=== PATIENT | female | born 1985 | race Caucasian/White ===

== ENCOUNTER 2018-11-07 15:46 | Emergency (ER) | payer BC ==
[2018-11-07 17:01] LABS: HEMOGLOBIN 10.8 g/dL (11.0-16.0); MEAN CELL VOLUME 81.6 fL (81.0-99.0); MEAN CORPUSCULAR HEMOGLOBIN 27.7 pg (27.0-31.0); MEAN CORPUSCULAR HGB CONC 33.9 g/dL (33.0-37.0); MEAN PLATELET VOLUME 8.6 fL (7.2-11.7); RBC 3.89 Mil/uL (3.80-5.20); RED CELL DISTRIBUTION WIDTH 13.5 % (11.5-14.5); WHITE BLOOD COUNT 8.4 K/uL (4.8-10.8)
[2018-11-07 17:08] LABS: SQUAMOUS EPITHIAL 1 /hpf (0-5); URINE BACTERIA RARE (<OCC); URINE BILIRUBIN NEGATIVE (NEGATIVE); URINE BLOOD NEGATIVE (NEGATIVE); URINE CALCIUM OXALATE CRYSTALS FEW /hpf (<OCC); URINE CLARITY Hazy (Clear); URINE COLOR Yellow (YELLOW); URINE GLUCOSE (UA) NORMAL (Normal); URINE LEUKOCYTE ESTERASE NEG Leu/uL (Negative); URINE PROTEIN NEGATIVE (NEGATIVE)
[2018-11-07 17:16] LABS: ALB/GLOB RATIO 1.2 (1.0-2.1); ALBUMIN 3.2 g/dL (3.5-5.0); ALT/SGPT 95 U/L (9-52); AST/SGOT 66 U/L (14-36); BILIRUBIN,DIRECT 0.2 mg/dL (0.0-0.4); BLOOD UREA NITROGEN 11 mg/dL (7-17); CALCIUM 8.8 mg/dl (8.6-10.4); GFR NON-AFRICAN AMERICAN > 60
[2018-11-07] MEDS ORDERED: Betamethasone Soluspan 30 mg/5mL Inj Susp IM ONE (17:29)
[2018-11-08 01:33] VITALS: BP 114/73; PULSE 86; RESP 20; TEMP 97.4; O2SAT 100
--- NOTE | 2018-11-08 12:19 | US ---
HISTORY: 34 wks IUP r/o cholestasis COMPARISON: None available. TECHNIQUE: Sonographic evaluation of the abdomen. FINDINGS: Examination limited by bowel gas. LIVER: Measures 15.8 cm in sagittal dimension and appears within normal limits of size, shape, and echotexture. No focal hepatic mass identified. The main portal vein appears patent with normal directional flow. No intrahepatic bile duct dilatation. GALLBLADDER: No gallstones. No gallbladder wall thickening. Negative sonographic Reyes's sign as assessed by the traffic maintenance supervisor. COMMON BILE DUCT: Measures 3 mm. PANCREAS: Not well visualized. RIGHT KIDNEY: Measures 11.5 x 5.6 x 4.9cm. No obstructing calculus or hydronephrosis identified. LEFT KIDNEY: Measures 10.9 x 5.6 x 5.6cm. No obstructing calculus or hydronephrosis identified. SPLEEN: Measures approximately 10.4 cm. AORTA: Limited views appear unremarkable. IVC: Limited views appear unremarkable. OTHER FINDINGS: Gravid patient. heart rate measures 132 beats per minute. Fetus otherwise not evaluated. If further evaluation indicated, suggest dedicated ultrasound. IMPRESSION: No acute findings identified. Preliminary impression was provided by [employer].
[2018-11-11 17:46] LABS: CHENODEOXYCHOLIC ACID 10.3 umol/L (< OR = 3.9)
== END 2018-11-07 21:25 | disposition home or self-care (01) ==
LOC: C.EROB 15:46
DX: O26.893 Other specified pregnancy related conditions, third trimester (principal); L29.9 Pruritus, unspecified; Z3A.34 34 weeks gestation of pregnancy
CPT/HCPCS: 76700; 80053; 81001; 82239; 82248; 83789; 85027; 96372; 99284; J0702

== ENCOUNTER 2018-11-08 18:46 | Emergency (ER) | payer BC ==
[2018-11-08 19:33] VITALS: BMI 29.2
[2018-11-08 20:16] LABS: ALB/GLOB RATIO 1.2 (1.0-2.1); ALBUMIN 3.2 g/dL (3.5-5.0); ALT/SGPT 117 U/L (9-52); AST/SGOT 79 U/L (14-36); BILIRUBIN,DIRECT 0.2 mg/dL (0.0-0.4); BLOOD UREA NITROGEN 9 mg/dL (7-17); CALCIUM 9.1 mg/dl (8.6-10.4); GFR NON-AFRICAN AMERICAN > 60
--- NOTE | 2018-11-08 20:49 | OBHP ---
Datetime: 11/08/2018 19:44 IP Adm Impression: , intrauterine IP Admit Plan: Observation/Evaluation Admit Comment, IP Provider: 33 yo female with an IUP at 34.1 weeks [address] by Dr. Schmitt for a second dose of Celestone and to repeat Liver profile Pelvic Type - PN: Adequate Extremities - PN: Normal Abdomen - PN: Normal Back - PN: Normal Breast - PN: Not Done Lungs - PN: Normal Heart - PN: Normal Thyroid - PN: Normal Neurologic - PN: Normal HEENT - PN: Normal General - PN: Normal EGA AdmitDate IP: 34.1 IP Chief Complaint: Maternal discomfort; evaluation Genitourinary Exam: Normal DTRs - PN: Normal Datetime: 11/07/2018 17:25 IP Chief Complaint Other: itching in the belly FHR - Baseline A Provider: 130 Contraction Comments Provider: none Vital Signs Provider: Reviewed; Within Normal Limits NICHD Variability Prov Fetus A: Moderate 6-25bpm NICHD Accel Fetus A IP Provider: [id number] FHR Category Provider Fetus A: Category I
[2018-11-08 21:10] LABS: SQUAMOUS EPITHIAL 1 /hpf (0-5); URINE AMORPHOUS SEDIMENT MODERATE /ul (<OCC); URINE BACTERIA RARE (<OCC); URINE BILIRUBIN NEGATIVE (NEGATIVE); URINE BLOOD NEGATIVE (NEGATIVE); URINE CLARITY Hazy (Clear); URINE COLOR Yellow (YELLOW); URINE GLUCOSE (UA) NORMAL (Normal); URINE LEUKOCYTE ESTERASE NEG Leu/uL (Negative); URINE PROTEIN NEGATIVE (NEGATIVE)
[2018-11-08] MEDS ORDERED: Betamethasone Soluspan 30 mg/5mL Inj Susp IM ONE (22:27)
--- NOTE | 2018-11-08 23:18 | OBDCSUM ---
Datetime: 11/08/2018 22:52 Discharged to, Provider: Home Follow up at, Provider: Disch Instr Activity: Normal activity Disch Instr Diet: Regular Discharge Instructions, Provider: Routine instructions given Discharge Time: 11/08/2018 22:53 Follow up in weeks, Provider: 11/12/18 Disch Referrals: None Contraception discussed, Prov: No Disch Activity Restrictions: No exercising; No lifting; Minimize stair-climbing Discharge Comment, Provider: A/P 34.1 weeks IUP Cholestasis of Hx of Cholestasis with previous NST Reactive Symptoms had improved significantly with Ursodiol Had first Celestone dose yesterday Repeated Liver profile show mild increase on AST and ALT while Total Billirubin remains WNL Bile Salst from yesterday still pending NST Reactive No Uterine activity Pt received second dose of Celestone IM Stable and Satisfactory condition D/W Dr. Schmitt and request to discharge patient home with instructions to return anytime if worsening of symptoms or any other c/o. Otherwise, will f/up in her office on Sunday 11/12 or as needed Discharge Diagnosis Prov Other: Cholestasis of
[2018-11-09 05:12] VITALS: BP 108/60; PULSE 90; RESP 18; TEMP 97.6
== END 2018-11-08 23:05 | disposition home or self-care (01) ==
LOC: C.EROB 18:46
DX: O26.613 Liver and biliary tract disorders in pregnancy, third trimester (principal); K83.1 Obstruction of bile duct; Z3A.34 34 weeks gestation of pregnancy
CPT/HCPCS: 80053; 81001; 82248; 96372; 99284; J0702